=== PATIENT | male | born 1950 | race Caucasian/White ===

== ENCOUNTER → 2020-03-22 11:33 | Outpatient (CLI) | payer MEDICARE, BC, SELFPAY ==
[2017-02-18 06:45] VITALS: BMI 21.9
[2020-03-22 12:43] LABS: Hematocrit 36.7 % (40-54); Hemoglobin 12.3 g/dL (13.0-16.5); Mean Corp Hgb Conc 33.5 g/dL (32-36); Mean Corpuscular Hgb 31.2 pg (27.0-32.0); Mean Corpuscular Volume 93.1 fL (80-94); Platelet Count 289 K/mm3 (150-450); RBC Distribution Width CV 11.9 % (11.6-14.6); RBC Distribution Width SD 41.2 fl (35.1-43.9); Red Blood Count 3.94 M/mm3 (4.6-6.2); White Blood Count 5.3 K/mm3 (4.4-11.0)
[2020-03-22 12:59] LABS: Albumin, Serum 4.6 g/dL (3.2-5.0); BUN 30 mg/dL (7-18); BUN/Creat Ratio 17.5 RATIO (10-20); Calcium,Total 9.6 mg/dL (8.5-10.1); Chloride 105 mmol/L (98-107); Creatinine, Serum 1.71 mg/dL (0.70-1.30); EST Glomerular Filtration Rate 42 mL/min (>60); Est Glom Filt Rate - Afr Amer 51 mL/min (>60); Glucose 92 mg/dL (74-106); Phosphorus 3.7 mg/dL (2.5-4.9); Potassium 5.2 mmol/L (3.5-5.1); Sodium Level 137 mmol/L (136-145)
[2020-03-22 13:11] LABS: PTHIN 41.4 pg/mL (18.4-80.1)
== END ==
PROVIDERS: Visit Provider Internal Medicine Nephrology
DX: N18.32 Chronic kidney disease, stage 3b (principal); R53.83 Other fatigue
CPT/HCPCS: 36415; 80069; 83970; 85027

== ENCOUNTER → 2020-03-27 14:05 | Outpatient (CLI) | payer MEDICARE, BC, SELFPAY ==
[2017-02-18 06:45] VITALS: BMI 21.9
--- NOTE | 2020-03-27 14:08 | US_ITS ---
STUDY: RENAL ULTRASOUND - COMPLETE REASON FOR EXAM: Male, 69 years old. CKD III TECHNIQUE: Ultrasound evaluation of the kidneys was performed with real-time and static hernandez-scale imaging. COMPARISON: None. FINDINGS: RIGHT KIDNEY: Normal location of the right kidney, which is normal in size. The right kidney measures 11.8 x 5.6 x 3.8 cm. There is a normal cortex of the right kidney. The renal cortex measures 1.3 cm. There is no right renal mass or cyst. There are no right renal calculi. There is no right hydronephrosis. DISTAL RIGHT URETER: There is non-visualization of the distal right ureter. There is no demonstrated right ureterovesical junction calculus. There is no demonstrated right ureteral jet. LEFT KIDNEY: Normal location of the left kidney, which is normal in size. The left kidney measures 11.5 x 4.6 x 6.4 cm. There is a normal cortex of the left kidney. The renal cortex measures 1.8 cm. There is no left renal mass or cyst. There are no left renal calculi. There is no left hydronephrosis. DISTAL LEFT URETER: There is non-visualization of the distal left ureter. There is no demonstrated left ureterovesical junction calculus. There is a visualized left ureteral jet. The prostate is enlarged with volume measured at 96 mL. BLADDER: The urinary bladder is nondistended, bladder wall thickening cannot be excluded. There are no demonstrated bladder calculi. US/Kidney and Bladder IMPRESSION: 1. No hydronephrosis. 2. Prostamegaly. Electronically Signed: Vernon Chadwick MD ([place]) at 9:05 EDT , Service support ,
== END ==
PROVIDERS: PCP Family Medicine; Referring Provider Internal Medicine Nephrology; Visit Provider Internal Medicine Nephrology
DX: N18.32 Chronic kidney disease, stage 3b (principal)
CPT/HCPCS: 76770

== ENCOUNTER → 2020-04-24 10:11 | Outpatient (CLI) | payer MEDICARE, BC, SELFPAY ==
[2017-02-18 06:45] VITALS: BMI 21.9
[2020-04-24 13:27] LABS: Albumin, Serum 4.4 g/dL (3.2-5.0); BUN 23 mg/dL (7-18); Calcium,Total 9.2 mg/dL (8.5-10.1); Chloride 106 mmol/L (98-107); Creatinine, Serum 1.64 mg/dL (0.70-1.30); EST Glomerular Filtration Rate 45 mL/min (>60); Est Glom Filt Rate - Afr Amer 54 mL/min (>60); Glucose 88 mg/dL (74-106); Phosphorus 3.2 mg/dL (2.5-4.9); Potassium 4.5 mmol/L (3.5-5.1); Sodium Level 139 mmol/L (136-145)
== END ==
PROVIDERS: PCP Family Medicine; Visit Provider Internal Medicine Nephrology
DX: N18.32 Chronic kidney disease, stage 3b (principal)
CPT/HCPCS: 36415; 80069

== ENCOUNTER → 2020-07-04 13:43 | Outpatient (CLI) | payer MEDICARE, BC, SELFPAY ==
[2020-07-04 14:48] LABS: Absolute Lymphocyte Count 0.47 X10^3/uL (0.83-4.51); Absolute Neutrophil Count 4.1 X10^3/uL (2.0-7.7); Basophil# 0.01 X10^3/uL; Basophil% 0.2 % (0-1); Eosinophil# 0.04 X10^3/uL; Eosinophils% 0.8 % (0-5); Hematocrit 31.8 % (40-54); Hemoglobin 10.4 g/dL (13.0-16.5); Lymphocyte # 0.47 X10^3/ul (4.0); Lymphocyte % 9.8 % (19-41); Mean Corp Hgb Conc 32.7 g/dL (32-36); Mean Corpuscular Hgb 30.6 pg (27.0-32.0); Mean Corpuscular Volume 93.5 fL (80-94); Mean Platelet Vol. 9.5 fl (6.2-12.0); Monocyte% 4.2 % (0-10); NRBC Flagged by Analyzer 0 % (0-5); Neutrophil # 4.06 X10^3/uL (2.7-7.7); Neutrophil % 84.8 % (47-70); POSITIVE DIFFERENTIAL YES; Platelet Count 263 K/mm3 (150-450); RBC Distribution Width SD 41.2 fl (35.1-43.9); White Blood Count 4.8 K/mm3 (4.4-11.0)
[2020-07-04 15:08] LABS: Differential Indicated SCAN CRITERIA MET
[2020-07-04 15:32] LABS: Anion Gap 6 (5-15); BUN 45 mg/dL (7-18); Calcium,Total 9.1 mg/dL (8.5-10.1); Chloride 107 mmol/L (98-107); Creatinine, Serum 2.05 mg/dL (0.70-1.30); EST Glomerular Filtration Rate 34 mL/min (>60); Est Glom Filt Rate - Afr Amer 42 mL/min (>60); Glucose 98 mg/dL (74-106); PSA,Total - Annual Screen 5.49 ng/mL (0.00-4.00); Potassium 5.2 mmol/L (3.5-5.1); Sodium Level 138 mmol/L (136-145); T4 Free Direct 0.98 ng/dL (0.76-1.46); Thyroid Stim Hormone (TSH) 2.79 uIU/mL (0.358-3.74)
[2020-07-04 15:39] LABS: Differential Comment SCANNED
== END ==
PROVIDERS: PCP Family Medicine; Visit Provider Family Medicine
DX: N18.31 Chronic kidney disease, stage 3a (principal); R97.20 Elevated prostate specific antigen [PSA]
CPT/HCPCS: 36415; 80048; 84153; 84439; 84443; 85025; G0103

== ENCOUNTER → 2020-07-06 14:09 | Outpatient (CLI) | payer MEDICARE, BC, SELFPAY ==
[2017-02-18 06:45] VITALS: BMI 21.9
--- NOTE | 2020-07-06 14:12 | US_ITS ---
STUDY: RENAL ULTRASOUND - COMPLETE REASON FOR EXAM: Male, 69 years old. LOW BACK PAIN TECHNIQUE: Ultrasound evaluation of the kidneys was performed with real-time and static hernandez-scale imaging. COMPARISON: 03/27/2020. FINDINGS: RIGHT KIDNEY: Normal location of the right kidney, which is normal in size. The right kidney measures 11.3 x 4.8 x 5.5 cm. There is a normal cortex of the right kidney. The renal cortex measures 1.5 cm. There is no right renal mass or cyst. There are no right renal calculi. There is no right hydronephrosis. DISTAL RIGHT URETER: There is non-visualization of the distal right ureter. There is no demonstrated right ureterovesical junction calculus. There is a visualized right ureteral jet. LEFT KIDNEY: Normal location of the left kidney, which is normal in size. The left kidney measures 11.0 x 5.1 x 5.7 cm. There is a normal cortex of the left kidney. The renal cortex measures 1.6 cm. There is no left renal mass or cyst. There are no left renal calculi. There is no left hydronephrosis. DISTAL LEFT URETER: There is non-visualization of the distal left ureter. There is no demonstrated left ureterovesical junction calculus. There is a visualized left ureteral jet. BLADDER: The distended urinary bladder has a volume of 284 ml. There is trabeculation with thickening of the wall of the urinary bladder. Bladder wall measures 4.3 mm. There is a bladder diverticulum. There is prostate enlargement extending into the base of the bladder. US/Kidney and Bladder IMPRESSION: Similar to prior exam. No acute abnormality of the kidneys. No hydronephrosis. Findings consistent with chronic bladder outlet obstruction from prostate enlargement. Electronically Signed: Gianfranco Wagner MD at 15:57 EST , Service support ,
== END ==
PROVIDERS: PCP Family Medicine; Referring Provider Family Medicine; Visit Provider Family Medicine
DX: M54.5 Low back pain (principal); N40.1 Benign prostatic hyperplasia with lower urinary tract symptoms; N13.8 Other obstructive and reflux uropathy
CPT/HCPCS: 76770

== ENCOUNTER → 2020-07-10 | Outpatient (CLI) | payer MEDICARE, BC, SELFPAY ==
[2017-02-18 06:45] VITALS: BMI 21.9
[2020-07-10 11:00] LABS: Color, Urine Yellow (Yellow); Glucose, Dipstick Normal (Normal); Ketone-Dipstick Negative (Negative); Leukocyte Esterase-Dipstick Negative /ul (Negative); Nitrite-Dipstick Negative (Negative); Occult Blood-Urine 150 /ul (Negative); Protein-Dipstick 30 mg/dl (Negative); Specific Gravity, Urine 1.015 (1.002-1.030); Urine Bilirubin Dipstick Negative (Negative); Urine Clarity Sl. Cloudy (Clear); Urine Urobilinogen Normal (Normal)
[2020-07-10 11:14] LABS: Bacteria RARE /hpf (None Seen); Mucous, Urine RARE /hpf (<or=2+); Red Blood Cells-Urine 0-5 SEEN /hpf (0-5); Squamous Epithelial Cells - UA 0-5 SEEN /hpf (0-5); White Blood Cells 0-5 SEEN /hpf (0-5)
== END | disposition home or self-care (01) ==
LOC: LABSPEC 10:49
PROVIDERS: PCP Family Medicine
DX: R31.29 Other microscopic hematuria (principal)
CPT/HCPCS: 81001

== ENCOUNTER → 2020-08-07 12:49 | Outpatient (CLI) | payer MEDICARE, BC, SELFPAY ==
--- NOTE | 2020-08-07 13:05 | RAD_ITS ---
STUDY: X-RAY - LUMBAR SPINE REASON FOR EXAM: Male, 70 years old. Persistent low back pain TECHNIQUE: 5 view(s) of the lumbar spine were obtained including oblique views. COMPARISON: None FINDINGS: Normal lumbar lordosis. There is no substantial scoliosis. There is a normal alignment of the vertebrae. Mild degree of anterior spondylosis at the L4-L5 level. Normal disc space heights. The soft tissue structures are unremarkable. RAD/L/S Spine Min 4 Views IMPRESSION: Degenerative changes of the spine, as detailed above. Electronically Signed: Damion Rushing MD at 13:59 EST , Service support ,
== END ==
PROVIDERS: PCP Family Medicine; Referring Provider Family Medicine; Visit Provider Family Medicine
DX: M54.5 Low back pain (principal)
CPT/HCPCS: 72110

== ENCOUNTER → 2020-08-22 13:04 | Outpatient (CLI) | payer MEDICARE, BC, SELFPAY ==
[2020-08-20 09:31] VITALS: BMI 20.9
--- NOTE | 2020-08-22 13:55 | MRI_ITS ---
STUDY: MRI LUMBAR SPINE WITHOUT CONTRAST REASON FOR EXAM: Male, 70 years old. lumbar pain,lesion TECHNIQUE: Standardized fat and water weighted pulse sequences were obtained in the sagittal and axial planes. COMPARISON: X-ray 08/07/2020 FINDINGS: T12-L1: Normal endplates. Normal disc height, hydration and morphology. Normal bilateral facet joints. Normal central canal and bilateral lateral recesses. Normal bilateral intervertebral neural foramina. Normal lumbar lordosis. There is no substantial scoliosis. Normal conus medullaris that terminates at the L1/L2. Diffusely heterogeneous mottled the marrow signal throughout the lumbar spine and sacrum suggestive of a metastatic disease or multiple myeloma. Mild loss of height of the L1 vertebral body with marrow edema consistent with an acute pathologic compression fracture. No retropulsion into the spinal canal. L1-2: Normal endplates. Normal disc height, hydration and morphology. Normal bilateral facet joints. Normal central canal and bilateral lateral recesses. Normal bilateral intervertebral neural foramina. L2-3: Small central disc protrusion produces mild spinal stenosis and no neural foraminal stenosis. L3-4: Mild bilateral facet hypertrophy and ligament flavum hypertrophy. Mild broad disc protrusion produces mild spinal stenosis and mild bilateral neural foraminal stenosis. L4-5: Mild broad disc protrusion with a central annular tear produces mild spinal stenosis but no neural foraminal stenosis. L5-S1: Normal endplates. Normal disc height, hydration and morphology. Normal bilateral facet joints. Normal central canal and bilateral lateral recesses. Normal bilateral intervertebral neural foramina. Normal visualized sacral ala. Normal visualized paraspinous soft tissue structures. MRI/Spine Lumbar (Routine) IMPRESSION: 1. Diffusely heterogeneous of the marrow signal suggestive of metastatic disease or multiple myeloma. Acute mild pathologic compression fracture of L1 without retropulsion into the spinal canal. 2. Degenerative disc disease as described above. Electronically Signed: Ed Delgado MD at 16:20 EST Tel , Service support ,
--- NOTE | 2020-08-22 14:32 | MRI_ITS ---
STUDY: MRI THORACIC SPINE WITHOUT CONTRAST REASON FOR EXAM: Male, 70 years old. pain TECHNIQUE: Standardized fat and water weighted pulse sequences were obtained in the sagittal and axial planes. COMPARISON: None. FINDINGS: Normal kyphosis of the thoracic spine. There is no substantial scoliosis. Heterogeneous mottled marrow signal throughout the thoracic spine suggestive of an infiltrative disorder such as metastatic disease or multiple myeloma. T1-2, T2-3, T3-4, T4-5, T5-6, T6-7, T7-8, T8-9, T9-10, T10-11, T11-12: Normal endplates. Normal disc hydration, heights and morphology of the corresponding intervertebral discs. Normal central canal and intervertebral neural foramina at the corresponding levels. Normal visualized thoracic cord. Normal conus medullaris that terminates at the L2.. The soft tissue structures are unremarkable. MRI/Spine Thoracic (Routine) IMPRESSION: Suspect marrow proliferative disorder such as the metastatic disease or multiple myeloma. Clinical correlation is recommended. Electronically Signed: Ed Delgado MD at 16:13 EST Tel , Service support ,
== END ==
PROVIDERS: PCP Family Medicine; Referring Provider Orthopaedic Surgery; Visit Provider Orthopaedic Surgery
DX: G12.29 Other motor neuron disease (principal); M51.26 Other intervertebral disc displacement, lumbar region
CPT/HCPCS: 72146; 72148

== ENCOUNTER → 2020-08-24 13:49 | Outpatient (CLI) | payer MEDICARE, BC, SELFPAY ==
[2020-08-20 09:31] VITALS: BMI 20.9
[2020-08-24 17:52] LABS: Absolute Lymphocyte Count 0.45 X10^3/uL (0.83-4.51); Absolute Neutrophil Count 3.3 X10^3/uL (2.0-7.7); Basophil# 0.02 X10^3/uL; Basophil% 0.5 % (0-1); Eosinophil# 0.06 X10^3/uL; Eosinophils% 1.5 % (0-5); Hematocrit 30.8 % (40-54); Hemoglobin 10.3 g/dL (13.0-16.5); Lymphocyte # 0.45 X10^3/ul (4.0); Lymphocyte % 11.1 % (19-41); Mean Corp Hgb Conc 33.4 g/dL (32-36); Mean Corpuscular Hgb 31.7 pg (27.0-32.0); Mean Corpuscular Volume 94.8 fL (80-94); Mean Platelet Vol. 9.3 fl (6.2-12.0); Monocyte# 0.19 X10^3/uL; Monocyte% 4.7 % (0-10); NRBC Flagged by Analyzer 0 % (0-5); Neutrophil # 3.32 X10^3/uL (2.7-7.7); POSITIVE DIFFERENTIAL YES; Platelet Count 292 K/mm3 (150-450); RBC Distribution Width CV 12.4 % (11.6-14.6); RBC Distribution Width SD 43.4 fl (35.1-43.9); Red Blood Count 3.25 M/mm3 (4.6-6.2); White Blood Count 4.1 K/mm3 (4.4-11.0)
[2020-08-24 17:59] LABS: Differential Indicated SCAN CRITERIA MET
[2020-08-24 18:09] LABS: ALB/GLOB Ratio 1.5 RATIO (0.9-2.4); AST(SGOT) 10 U/L (15-37); Alanine Aminotransfer ALT/SGPT 30 U/L (16-61); Albumin, Serum 4.2 g/dL (3.2-5.0); Alkaline Phosphatase 182 U/L (45-117); Anion Gap 5 (5-15); BUN 53 mg/dL (7-18); BUN/Creat Ratio 17.7 RATIO (10-20); Calcium,Total 9.3 mg/dL (8.5-10.1); Chloride 105 mmol/L (98-107); Creatinine, Serum 2.99 mg/dL (0.70-1.30); EST Glomerular Filtration Rate 22 mL/min (>60); Est Glom Filt Rate - Afr Amer 27 mL/min (>60); Globulin 2.8 g/dL (2.2-4.2); Glucose 110 mg/dL (74-106); Potassium 4.8 mmol/L (3.5-5.1); Sodium Level 136 mmol/L (136-145)
[2020-08-24 18:27] LABS: Differential Comment SCANNED
[2020-08-27 20:11] LABS: Beta-2-Microglobulin, S 8.3 mg/L (0.6-2.4)
[2020-08-28 10:08] LABS: Pathologist Review Reviewed
[2020-08-28 20:07] LABS: Free Kappa Light Chains 1169.4 mg/L (3.3-19.4); Free Lambda Light Chains 5.9 mg/L (5.7-26.3); PROEL- A/G Ratio 1.7 (0.7-1.7); PROEL- Albumin 4.1 g/dL (2.9-4.4); PROEL- Alpha-1 Globulin 0.3 g/dL (0.0-0.4); PROEL- Alpha-2 Globulin 0.9 g/dL (0.4-1.0); PROEL- Beta Globulin 0.9 g/dL (0.7-1.3); PROEL- Gamma Globulin 0.3 g/dL (0.4-1.8); PROEL- Globulin, Total 2.4 g/dL (2.2-3.9); PROEL- TOTAL PROTEIN 6.5 g/dL (6.0-8.5); PROELU- Albumin, Urine 59.5 % (.); PROELU- Alpha-1-Globulin,Ur 3.2 % (.); PROELU- Alpha-2-Globulin,Ur 10.3 % (.); PROELU- Beta Globulin, Ur 13.5 % (.); PROELU- Gamma Globulin, Ur 13.5 % (.); Total Protein, Ur 36.9 mg/dL (Not Estab.)
== END ==
PROVIDERS: PCP Family Medicine; Visit Provider Family Medicine
DX: R79.89 Other specified abnormal findings of blood chemistry (principal); R80.0 Isolated proteinuria; R93.7 Abnormal findings on diagnostic imaging of other parts of musculoskeletal system; D64.9 Anemia, unspecified
CPT/HCPCS: 36415; 80053; 82232; 83883; 84165; 84166; 85025

== ENCOUNTER → 2020-08-27 07:20 | Outpatient (CLI) | payer MEDICARE, BC, SELFPAY ==
[2020-08-20 09:31] VITALS: BMI 20.9
--- NOTE | 2020-08-27 07:33 | MRI_ITS ---
STUDY: MRI CERVICAL SPINE WITHOUT CONTRAST REASON FOR EXAM: Male, 70 years old. PAIN -- no neck pain, babinski reflex TECHNIQUE: Standardized fat and water weighted pulse sequences were obtained in the sagittal and axial planes. COMPARISON: No comparison available. FINDINGS: Diffuse heterogeneous marrow signal with multiple regions of abnormal STIR signal (sagittal image 8 series 4). No acute fracture line. No acute dislocation. No abnormal cord signal. Symmetric vascular flow voids. Mild paraspinal muscle atrophy. No acute soft tissue process. Mild cervical straightening. No significant scoliosis. Diffuse mild/moderate facet joint arthrosis. No spondylolisthesis. Intact foramen magnum and brainstem-cervical cord junction. Intact craniovertebral junction. Intact anterior atlantoaxial articulation. Intact odontoid process. C2-3: Normal endplates. Shallow disc bulge. Normal central canal and intervertebral neural foramina. C3-4: Mild endplate spondylosis. Shallow disc bulge. Normal central canal. Moderate bilateral neural foraminal narrowing. C4-5: Mild endplate spondylosis. Shallow disc bulge. Minimal central canal narrowing. Moderate bilateral neural foramina narrowing. C5-6: Mild endplate spondylosis. Shallow disc bulge. Minimal canal narrowing. Severe right neural foramina narrowing. Normal left neural foramina. C6-7: Mild endplate spondylosis. Left paracentral disc protrusion. Minimal canal narrowing. Severe left and moderate right neural foraminal narrowing. C7-T1: Normal endplates. Disc desiccation. Normal central canal and intervertebral neural foramina. MRI/Spine Cervical (Routine) IMPRESSION: No abnormal cord signal Multilevel intervertebral disc disease with mild central canal narrowing at C4-5 through C6-7 Multilevel moderate/severe neural foraminal narrowing at C3-4 through C6-7 Multilevel mild/moderate osteoarthritis Heterogeneous marrow signal with there are abnormalities (diffuse metastatic disease/multiple myeloma versus less likely severe red marrow reconversion/anemia; correlate medical history) Electronically Signed: Dexter Chung DO at 10:18 EST Tel , Service support ,
--- NOTE | 2020-08-27 07:33 | MRI_ITS ---
STUDY: MRI BRAIN WITHOUT CONTRAST REASON FOR EXAM: Male, 70 years old. LESION TECHNIQUE: Standardized multiplanar fat and water weighted pulse sequences were obtained. COMPARISON: None. FINDINGS: Normal size of the ventricles and extra-axial spaces for the patient''s age. Normal white matter tracts of the supratentorial brain. There is no evidence for recent intracranial ischemia or other cause of cytotoxic edema on diffusion weighted imaging (DWI). Normal T2* images of the brain without demonstrated susceptibility artifact. There is no demonstrated hemosiderin stain. Normal bilateral basal ganglia. Normal thalami. There is no extra-axial fluid accumulation. Normal flow voids within the major intracranial circulation suggesting patency by spin echo criteria. Normal sella turcica, pituitary gland, infundibular stalk, optic chiasm and hypothalamus. Normal tectal plate and pineal gland. Normal midbrain, judy and medulla. Normal cerebellum. Normal basal cisterns. Normal bilateral temporal bones. Normal bilateral internal auditory canals. No demonstrated orbital abnormality, within the constraints of a routine brain study. Normal visualized paranasal sinuses. Normal calvarium and skull base. Normal visualized soft tissue structures. Normal visualized upper cervical spine. MRI/Brain without Contrast IMPRESSION: Normal unenhanced MRI of the brain. Electronically Signed: Ed Delgado MD at 9:53 EST Tel , Service support ,
== END ==
PROVIDERS: PCP Family Medicine; Referring Provider Orthopaedic Surgery; Visit Provider Orthopaedic Surgery
DX: G93.9 Disorder of brain, unspecified (principal); M48.02 Spinal stenosis, cervical region
CPT/HCPCS: 70551; 72141

== ENCOUNTER 2020-08-28 10:30 | Outpatient (RCR) | payer MEDICARE, BC, SELFPAY ==
--- NOTE | 2020-08-14 14:04 | HP.PTEVAL_ITS ---
Patient's Visit Information JENNIFER OCAMPO is a 70 year old M referred to Physical Therapy by Dr. Bradley Chiang DO with a diagnosis of Low back pain; Lumbago. Date of Evaluation: 08/14/20 Physical Therapist: Cristino Nguyen, PT, Cert MDT, OCS - Visit Plan Frequency: 2x /Week Duration: 4-6 Weeks Plan: 2xs/week for 4-6 weeks. PT Interventions: Core stabilization, postural training, body mechanics, LE strengthening, Lumbar AROM, flexibility. Could benifit from MRI - Subjective Patient is a 70 year old male presenting to the clinic with LBP. March 2020 diagnosed with kidney disease. Back pain started late April 2020 (insidious onset) and progressively got worse. X-ray showed mild degenerative changes. Has an appointment on 08/21/[address] Bass to look at his back. Patient is unsure if the back pain is musculoskeletal or related to kidney disorder. 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 Sitting and standing help to decrease pain. Low back pain that is worse on the L compared to the right. Describes pain as aching. Reports he doesn't sleep well; sleeps on side. Denies any radicular symptoms, numbness and tingling. Reports stairs are not challenging. Tylenol and heat help to decrease the pain. Coughing/sneezing +.Bowel/bladder _. Vocation: Retired - Pain Bilateral Back Pain Intensity (Out of 10): 5 Pain Intensity Range: 10 - Objective Lumbar AROM: Flexion 25% (+Keerthi's Sign), ext 25%, sidebending 50%, rotation 50%. LE MMT: L Hip flexion 4+/5, quad 5/5, hams 5/5, DF 5/5, PF 5/5. R hip flexion 4+/5, quad 5/5, hams 5/5, DF 5/5, PF 5/5. Sensation: Intact to light touch in B LE. Posture: Decreased lumbar lordosis. Palpation: No TTP of lumbar paraspinals - Special Tests L/S Slump test left side: Negative L/S Slump test right side: Negative L/S Left Straight Leg Raise: Positive L/S Right Straight Leg Raise: Negative Lumbar Standing: Flexion - Mechanical Response: No effect Lumbar Standing: Flexion - Symptoms During Testing: Increases Lumbar Standing: Flexion - Symptoms After Testing: Worse Lumbar Standing: Extension - Mechanical Response: No effect Lumbar Standing: Extension - Symptoms During Testing: Decreases Lumbar Standing: Extension - Symptoms After Testing: Better Lumbar Standing: Right Side Glides - Mechanical Response: No effect Lumbar Standing: Right Side [place] - Symptoms During Testing: No effect Lumbar Standing: Right Side [place] - Symptoms After Testing: No effect Lumbar Standing: Left Side [place] - Mechanical Response: No effect Lumbar Standing: Left Side [place] - Symptoms During Testing: No effect Lumbar Standing: Left Side [place] - Symptoms After Testing: No effect Comments:: no painfull Comments:: check session - Goals Goal 1:: Patient will demonstrate independence with HEP. Goal Time Frame: 4-6 Weeks Goal 2:: Patient will demonstrate 5/5 LE MMT for improved functional strength. Goal Time Frame: 4-6 Weeks Goal 3:: Patient will report no more than 2/10 pain will getting up out of bed for improved functional mobility. Goal Time Frame: 4-6 Weeks Goal 4:: Patient will improve Oswestry (back) by 5 or > points for improved QOL. Goal Time Frame: 4-6 Weeks Goal 5:: Patient will demonstrate the ability to perform lumbar flexion with >50% limitation and negative [place]'s sign for improved functional mobility. Goal Time Frame: 4-6 Weeks - Rehabilitation Potential Physical Therapy Diagnosis: Patient is a 70 year old male presenting to the clinic with LBP, limited lumbar AROM, and pain with transfers in bed. Patient's pain is consistent with musculoskeletal pathology with pain during test movements possible dsic related. Rehabilitation Potential: Good - Anticipated Interventions Patient/Client Instruction: Educate patient on: Condition, Plan of Care, Benefits of Fitness Program For the Purpose of:: To decrease pain, To decrease swelling/inflammation, To increase ROM, To improve muscle performance and motor function, To improve ability to perform ADL's, To increase tolerance to activity/condition/position, To improve performance and independence with ADL's, To improve ability of physical actions for home/community/work/leisure, To increase flexibility/ROM, To assume or resume ADL's, To improve health and function, To improve self management, To improve ability to perform tasks related to life management, To improve tolerance to ADL's Therapeutic Exercise to Include: Strength training, Body mechanics, Postural training, Flexibilty training, Active ROM For the Purpose of:: To decrease pain, To decrease swelling/inflammation, To increase ROM, To improve muscle performance and motor function, To improve ab ility to perform ADL's, To increase tolerance to activity/condition/position, To improve performance and independence with ADL's, To improve ability of physical actions for home/community/work/leisure, To increase flexibility/ROM, To assume or resume ADL's, To improve health and function, To improve self management, To improve ability to perform tasks related to life management, To improve toleran ce to ADL's IF ES: Yes Other electric stimulation: Yes Cryotherapy (ice pack, ice massage): Yes Thermo therapy (hot pack): Yes For the Purpose of:: To decrease pain, To decrease swelling/inflammation, To increase ROM, To improve muscle performance and motor function, To improve ability to perform ADL's, To increase tolerance to activity/condition/position, To improve performance and independence with ADL's, To improve ability of physical actions for home/community/work/leisure, To increase flexibility/ROM, To assume or resume ADL's, To improve health and function, To improve self management, To improve ability to perform tasks related to life management, To improve tolerance to ADL's Thank you for the opportunity to evaluate your patient. For Medicare and Medicare HMO plans, please review the plan of care and approve it. It will need to be FAXED BACK to us at [phone] for Medicare purposes. For Medicare only, by signing this I certify the plan of care. Please let me know if there are questions or concerns regarding this plan of care. Physician Signature: Date:
--- NOTE | 2021-02-04 17:49 | HP.PT.NRP ---
JENNIFER Lucas AMINAHJIAIDAN was seen in my office for initial evaluation on 08/14/20. The following Plan of Care was established for this patient: Initial Frequency: 2x /Week Initial Duration: 4-6 Weeks Patient/Client Instruction: Educate patient on: Condition, Plan of Care, Benefits of Fitness Program For the Purpose of:: To decrease pain, To decrease swelling/inflammation, To increase ROM, To improve muscle performance and motor function, To improve ability to perform ADL's, To increase tolerance to activity/condition/position, To improve performance and independence with ADL's, To improve ability of physical actions for home/community/work/leisure, To increase flexibility/ROM, To assume or resume ADL's, To improve health and function, To improve self management, To improve ability to perform tasks related to life management, To improve tolerance to ADL's Therapeutic Exercise to Include: Strength training, Body mechanics, Postural training, Flexibilty training, Active ROM For the Purpose of:: To decrease pain, To decrease swelling/inflammation, To increase ROM, To improve muscle performance and motor function, To improve ability to perform ADL's, To increase tolerance to activity/condition/position, To improve performance and independence with ADL's, To improve ability of physical actions for home/community/work/leisure, To increase flexibility/ROM, To assume or resume ADL's, To improve health and function, To improve self management, To improve ability to perform tasks related to life management, To improve tolerance to ADL's IF ES: Yes Other electric stimulation: Yes Cryotherapy (ice pack, ice massage): Yes Thermo therapy (hot pack): Yes For the Purpose of:: To decrease pain, To decrease swelling/inflammation, To increase ROM, To improve muscle performance and motor function, To improve ability to perform ADL's, To increase tolerance to activity/condition/position, To improve performance and independence with ADL's, To improve ability of physical actions for home/community/work/leisure, To increase flexibility/ROM, To assume or resume ADL's, To improve health and function, To improve self management, To improve ability to perform tasks related to life management, To improve tolerance to ADL's This patient was last seen in our office . Pertinent comments regarding their Physical therapy will appear below: Patient seen for PT for back pain had multiple test found to have multiple myeloma . NA for PT At this point I will be discontinuing this patient from physical therapy. I would be happy to see this patient again in the future if found appropriate by the physician. Thank you! Cristino Nguyen, PT, Cert MDT, OCS Balance/Gait/Functional tests - Balance/Special Test Scores Oswestry Low Back Score: 17
== END 2020-08-28 19:00 | disposition home or self-care (01) ==
LOC: PT 10:30
PROVIDERS: PCP Family Medicine; Referring Provider Family Medicine; Visit Provider Family Medicine
DX: M54.5 Low back pain (principal)
CPT/HCPCS: 97014; 97110; 97161; G0283

== ENCOUNTER → 2020-09-03 12:43 | Outpatient (CLI) | payer MEDICARE, BC, SELFPAY ==
[2020-08-31 09:40] VITALS: BMI 19.8
--- NOTE | 2020-09-03 13:06 | RAD_ITS ---
STUDY: X-RAY BONE SURVEY COMPLETE REASON FOR EXAM: Male, 70 years old. Multiple myeloma. TECHNIQUE: One view of the pelvis was obtained. 2 views of the cervical spine were obtained. 2 views of the thoracic spine were obtained. 2 views of the lumbar spine were obtained. 2 views of the femur. 2 views of the humerus. : 3 views of the skull were obtained. COMPARISON: None. FINDINGS: CHEST: Mild hyperexpansion with diffuse interstitial pattern. There is no demonstrated pleural abnormality. Cardiomegaly. Normal mediastinum and rosy. Normal visualized pulmonary arteries. Normal visualized aortic arch and descending thoracic aorta. Normal visualized thoracic spine. Normal visualized ribs, clavicles, and shoulders. There is no demonstrated abnormality of the visualized soft tissue structures of the upper abdomen. PELVIS: There is a non-specific bowel gas pattern. Normal visualized soft tissue structures. Normal bilateral iliac wings, sacroiliac joints and visualized sacrum. Normal visualized bilateral superior and inferior pubic rami. Normal pubic symphysis. Normal ischial tuberosities. Normal visualized right femoral head. Normal right acetabulum. Normal right hip joint. Normal visualized left femoral head. Normal left acetabulum. Normal left hip joint. CERVICAL SPINE: Normal anterior atlantoaxial articulation. Normal odontoid process. Normal cervical lordosis. Normal vertebral bodies and endplates. Normal disc space heights. Normal visualized intervertebral neuroforamina. The soft tissue structures are unremarkable. THORACIC SPINE: Generalized osteopenia. Normal kyphosis of the thoracic spine. There is no substantial scoliosis. Normal thoracic vertebrae and endplates. Diffuse intervertebral disc space narrowing with small osteophytes. The soft tissue structures are unremarkable. LUMBAR SPINE: Generalized osteopenia. Normal lumbar lordosis. There is no substantial scoliosis. There is a normal alignment of the vertebrae. Anterior wedge compression deformity of L1, age undetermined. Diffuse mild intervertebral disc space narrowing with small osteophytes. The soft tissue structures are unremarkable. RIGHT FEMUR: Normal visualized femur. Normal visualized soft tissue structure. Chondrocalcinosis of the knee. LEFT FEMUR: Lytic lesion with scalloping of the cortex in the left femur just below the greater trochanter. Normal visualized soft tissue structure. RIGHT HUMERUS :Normal visualized humerus. There is no demonstrated fracture or osseous destructive process. There is no demonstrated soft tissue abnormality. LEFT HUMERUS: Normal visualized humerus. There is no demonstrated fracture or osseous destructive process. There is no demonstrated soft tissue abnormality. LEFT AND RIGHT FOREARMS: Normal radius and ulna bilaterally. No soft tissue abnormality. LEFT AND RIGHT LOWER EXTREMITY: Normal tibia and fibula bilaterally. No soft tissue abnormality. SKULL: There is no demonstrated soft tissue swelling. Normal osseous calvarium. Normal visualized facial bones. Normal visualized paranasal sinuses. RAD/Bone Survey Comp(Axial&Append) IMPRESSION: Generalized osteopenia. Lytic lesion in the left proximal femur as described. Anterior wedge compression deformity of L1, age undetermined. Chondrocalcinosis of the knee. Diffuse mild cervical, thoracic and lumbar spondylosis. Electronically Signed: Moo Nolasco MD at 12:44 EDT , Service support ,
== END ==
PROVIDERS: PCP Family Medicine; Referring Provider Internal Medicine Hematology & Oncology; Visit Provider Internal Medicine Hematology & Oncology
DX: D47.2 Monoclonal gammopathy (principal); M89.9 Disorder of bone, unspecified; D64.9 Anemia, unspecified
CPT/HCPCS: 77075; 81050; 84166; 86335

== ENCOUNTER → 2020-09-06 07:45 | Outpatient (CLI) | payer MEDICARE, BC, SELFPAY ==
[2020-08-31 09:40] VITALS: BMI 19.8
[2020-09-06] VITALS (9 sets, daily range): BP systolic 128–154; BP diastolic 77–106; PULSE 69–97; RESP 10–23; TEMP 36.4; O2SAT 99–100; BMI 19.6
--- NOTE | 2020-09-06 | IMM_PTH ---
PATIENT: JENNIFER OCAMPO LOC: [place] U#:[id number] AGE/SX: 74/M ROOM: RE09/06/[address]: Dr. Rohini Tabor MD : 1950 BED: DIS: SPEC #: [id number] RECD: 09/07/20 10:36 STATUS: ELA REQ #: [id number] EBONY: 09/06/20 00:[address]: Rohini Tabor DEPT: IMMUNOHISTOCHEMISTRY RECD BY: Juliann Corrales ENTERED: 09/07/20 10:39 SP TYPE: IMMUNO OTHR DR: Dr. Bradley Chiang DO Tissues: B - Bone marrow of iliac crest Procedures: BCL-2 (add) BCL-6 (add) CD10 (add) CD138 (add) CD15 (add) CD20 (add) CD23 (add) CD3 (add) CD30 (add) CD43 (add) CD45 (add) CD5 (add) CD79A (add) CYCLIN (add) KAPPA (add) KI-67 (add) LAMBDA (add) MUM1 (add) C-MYC (add) Pankeratin (initial) S-100 (add) PHYSICIAN & [place] [id number] SPECIMEN INFORMATION: Tissue Source: B - Bone marrow biopsy, clot Clinical Info: MGUS, bone lesions, CRF, anemia, multiple myeloma Specimen Number: [id number] CPT code: 55257, 07724 x20 METHODOLOGY: Deparaffinized sections of prefer/formalin-fixed tissue or PAP/DQ stained slides are incubated with monoclonal/polyclonal antibodies/oligonucleotide probes. Localization is made via biotin free immunoperoxidase method. Appropriate controls are performed and reacted as expected. Results on target cell population are indicated in the following table: RESULTS: ANTIBODY / CLONE RESULT AE1-3 (AE1/AE3/PCK26) negative CD3 (PS1) negative CD5 (SP10) negative CD10 (56C6) negative CD15 (MMA) negative CD20 (L26) positive CD23 (1B12) negative CD30 (Ubaldo-H2) negative CD43 (L60) positive CD45 (RP2/18) negative CD79a (11E3) positive CD138 (B-A38) positive BCL-2 (bcl-2/100/D5) positive BCL-6 (LU917W/A8) negative Cyclin D1/BCL-1 (SP4) positive MUM1 (MRQ-43) positive C-MYC (Y69) negative Yarnell (polyclonal) positive Lambda (polyclonal) negative S-100 (4C4.9) negative Ki-67 (30-9) positive, low These tests were developed and their performance characteristics determined by [facility]. They may not have been cleared or approved by the U.S. Food and Drug Administration. The FDA has determined that such clearance or approval is not necessary. The above immunohistochemical/dualISH markers are ordered and reviewed by the Pathologist. INTERPRETATION: B. Bone marrow biopsy, clot: Consistent with plasma cell neoplasm, kappa restricted. AM:katina 09/10/2020 Case has been reviewed in consultation with Dr. Garland who concurs with the above diagnosis. IDC:SJ
--- NOTE | 2020-09-06 07:57 | CT_ITS ---
PROCEDURE: CT GUIDED BONE marrow biopsy of the left iliac bone. DATE: 09/06/2020 INDICATION: Male, 70 years old. [facility] [place] PHYSICIAN: Damion Rushing M.D. RADIATION DOSAGE (If Supplied By Facility): CTDIvol = ( 26 ) mGy, DLP = ( 454.03 ) mGycm. Individualized dose optimization techniques were utilized. PROCEDURE: The risks, benefits, and alternatives to the procedure were explained to the patient. The specific risk of hemorrhage requiring further treatment or intervention was detailed and accepted. Follow-up instructions were discussed with the patient as well. Written informed consent was obtained. The patient was brought into the CT suite and placed in the prone position. . An appropriate entry site was identified. The overlying skin was prepped and draped in the usual sterile fashion. 1% lidocaine was administered subcutaneously for local anesthesia. Conscious sedation was performed. The patient received 2 mg of VERSED and 50 mcg of FENTANYL intravenously. Conscious sedation was started at 9:00 AM and terminated at 922. The patient was monitored independently by the department nurse. Under CT guidance, a bone marrow biopsy and bone marrow aspirate from the posterior aspect of the left iliac bone were performed The specimens were then placed in the appropriate fluid and transported to the laboratory for analysis. Hemostasis was obtained. The patient tolerated the procedure well without immediate complications. CT/Biopsy/Inj or Needle Placement IMPRESSION: Successful CT guided bone marrow biopsy and aspirate of the posterior aspect of the left iliac bone, as described above. Conscious sedation protocol was followed. Electronically Signed: Damion Rushing MD at 9:50 EDT , Service support ,
[2020-09-06 07:58] LABS: Absolute Lymphocyte Count 0.56 X10^3/uL (0.83-4.51); Absolute Neutrophil Count 2.4 X10^3/uL (2.0-7.7); Basophil# 0.01 X10^3/uL; Basophil% 0.3 % (0-1); Eosinophil# 0.07 X10^3/uL; Eosinophils% 2.2 % (0-5); Hematocrit 31.5 % (40-54); Hemoglobin 10.3 g/dL (13.0-16.5); Lymphocyte # 0.56 X10^3/ul (4.0); Lymphocyte % 17.2 % (19-41); Mean Corp Hgb Conc 32.7 g/dL (32-36); Mean Corpuscular Hgb 31.2 pg (27.0-32.0); Mean Corpuscular Volume 95.5 fL (80-94); Mean Platelet Vol. 8.4 fl (6.2-12.0); Monocyte# 0.18 X10^3/uL; Monocyte% 5.5 % (0-10); NRBC Flagged by Analyzer 0 % (0-5); Neutrophil # 2.43 X10^3/uL (2.7-7.7); Neutrophil % 74.8 % (47-70); POSITIVE DIFFERENTIAL YES; Platelet Count 219 K/mm3 (150-450); RBC Distribution Width CV 12.5 % (11.6-14.6); RBC Distribution Width SD 43.7 fl (35.1-43.9); White Blood Count 3.3 K/mm3 (4.4-11.0)
[2020-09-06 07:59] LABS: Differential Indicated SCAN CRITERIA MET
[2020-09-06 08:09] LABS: Partial Thromboplast Time 26.7 Seconds (24.1-36.2); Prothrombin Time (Protime)PT. 12.6 SECONDS (11.7-14.9)
[2020-09-06 08:14] LABS: ALB/GLOB Ratio 1.5 RATIO (0.9-2.4); AST(SGOT) 29 U/L (15-37); Alanine Aminotransfer ALT/SGPT 86 U/L (16-61); Albumin, Serum 4.2 g/dL (3.2-5.0); Alkaline Phosphatase 196 U/L (45-117); Anion Gap 6 (5-15); BUN 53 mg/dL (7-18); BUN/Creat Ratio 18.7 RATIO (10-20); Calcium,Total 9.6 mg/dL (8.5-10.1); Chloride 108 mmol/L (98-107); Creatinine, Serum 2.84 mg/dL (0.70-1.30); EST Glomerular Filtration Rate 24 mL/min (>60); Est Glom Filt Rate - Afr Amer 29 mL/min (>60); Globulin 2.8 g/dL (2.2-4.2); Glucose 100 mg/dL (74-106); Potassium 5.1 mmol/L (3.5-5.1); Sodium Level 138 mmol/L (136-145)
[2020-09-06 08:37] LABS: Pathologist Review May foll; Platelet Estimate A (ADEQ); Red Cell Morphology NORM C+C NORMAL (NORM C&C)
[2020-09-06] MEDS: fentaNYL 100 MCG/2 ML Ampul IV ×2 (08:59→09:24)
[2020-09-06] MEDS: Midazolam 2 MG/2 ML Syringe IV ×2 (08:59→09:24)
--- NOTE | 2020-09-06 09:00 | BMB_PTH ---
PATIENT: JENNIFER OCAMPO LOC: [place] U#:[id number] AGE/SX: 74/M ROOM: RE09/06/[address]: Dr. Rohini Tabor MD : 1950 BED: DIS: SPEC #: [id number] RECD: 09/06/20 09:45 STATUS: ELA REQ #: [id number] EBONY: 09/06/20 09:[address]: Rohini Tabor DEPT: BONE MARROW RECD BY: Anny Farr ENTERED: 09/06/20 09:46 SP TYPE: BMB ISABEL DR: Dr. Bradley Chiang DO Tissues: A - Bone marrow, NOS B - Bone marrow, NOS C - Bone marrow, NOS Procedures: Bone Marrow Aspiration Bone Marrow Core Biopsy Iron Stain Bone Marrow HEADER OPERATION: Bone marrow biopsy and aspiration PRE-OP DIAGNOSIS: MGUS, bone lesions, CRF, anemia, multiple myeloma TISSUE SUBMITTED: A - Core, B - Clot, C - Smears, and send outs (flow, cytogenetics and FISH) BONE MARROW DIAGNOSIS Bone marrow biopsy, clot and aspiration: Plasma cell neoplasm, kappa restricted. See comment. AM:katina 09/10/2020 COMMENT Immunohistochemistry ([id number]) supports the above diagnosis. Flow cytometry analysis of aspirate material does not reveal phenotypic evidence of abnormal myeloid maturation, increased blasts or lymphoproliferative disorder. The complete flow report is viewable in EMR. Case has been reviewed in consultation with Dr. Garland who concurs with the above diagnosis. IDC:SJ BONE MARROW STUDY Slides are reviewed. CBC DATE: 09/06/20 WBC 3.3; RBC 3.3; HGB 10.3; HCT 31.5; MCV 95.5; RDW 12.5; PLTS 219,000 SEGS 74.8%; LYMPHS 17.2%; MONOS 5.5%; EOS 2.2%; BASOS 0.3% PERIPHERAL SMEAR: Submitted. RBC: Macrocytic anemia. WBC: Occasional reactive lymphocytes. PLTS: Normomorphic BONE MARROW ASPIRATE DIFFERENTIAL: 200 cell count. Blasts % (normal 0-2): 1 Promyelocytes % (normal 1-5): 3 Myelocytes and metamyelocytes % (normal 17-41): 25 Bands and Segs % (normal 15-32): 21 Eos % (normal 1-6): 1 Basos % (normal 0-1): 0 Monocytes % (normal 0-4): 2 Erythroid Precursors % (normal 17-35): 23 Lymphocytes % (normal 7-13): 10 Plasma Cells % (normal 0-2): 14 ASPIRATE FINDINGS: Site: Left hip Aspicular Hypocellular M/E ratio: 2.2 (Normal 1.5 - 4.0) Megakaryocytes: Rare, normomorphic Erythropoiesis: Normoblastic Granulopoiesis: Progressive Other findings: Plasma cell neoplasm CORE BIOPSY FINDINGS: Site: Left hip Adequacy: Not applicable Cellularity %: Not applicable M/E ratio: Not applicable Comment: No bone, bone marrow present. Only blood identified. ASPIRATE CLOT FINDINGS: Site: Left hip Marrow Particles: Many Cellularity %: >90% M/E ratio: Within normal limits Megakaryocytes: Decreased Granuloma(s): 0 Lymphoid aggregate(s): 0 Comment: Plasma cell neoplasm. SPECIAL STAINS (with matched controls): Iron: Increased (4+) in areas of plasma cell proliferation. Reticulin: Within normal limits PAS: Highlights myeloid elements and megakaryocytes. BONE MARROW GROSS A - Received is a container labeled with the patient's name and designated left hip. The specimen consists of reddish-duvall fluid measuring approximately 5 cc in quantity. The specimen is submitted for cell block preparation. B - Received labeled with the patient's name and designated left hip is a specimen that consists of approximately 7 cc of reddish-duvall fluid that on filtration yields multiple irregular fragments of red-duvall soft tissue measuring in aggregate 2 x 1 x <0.1 cm. The specimen is totally submitted in one cassette. C - Also received are 10 unstained and 1 peripheral stained slides. The unstained slides are submitted for appropriate staining. Also received are two green top tubes which are sent to our reference lab for flow, cytogenetics and FISH. / AM:katina 09/06/20 TC:0 CPT: 20370, 09608, 95358 x2, 89719 x3 ADDENDUM ADDENDUM ADDENDUM ADDENDUM ADDENDUM ADDENDUM ADDENDUM ADDENDUM ADDENDUM ADDENDUM ADDENDUM ADDENDUM ADDENDUM ADDENDUM ADDENDUM ADDENDUM ADDENDUM ADDENDUM ADDENDUM ADDENDUM ADDENDUM 09/13/2020 10:08 ADDENDUM 09/13/2020 10:08 ADDENDUM 09/13/2020 10:08 ADDENDUM 09/13/2020 10:08 ADDENDUM 09/13/2020 10:08 ADDENDUM 09/14/2020 10:51 ADDENDUM 01/03/2021 09:31 FLUORESCENCE IN-SITU HYBRIDIZATION (FISH) FROM [facility] MYELOMA PROGNOSIS INTERPRETATION: 1. No evidence of IGH-MAF [translocation t(14;16)] gene rearrangement 2. RB1 monosomy (13q14 deletion) is present. Comment: Deletion of 13q14 (RB1 locus) can be seen in 15-40% of newly diagnosed cases of plasma cell myeloma and is an independent adverse prognostic variable, despite its relative frequence. (Blood 95: 0190-1907) 3. 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 Comment: An abnormal hybridization double fusion pattern (1R1G2F) was identified in a subset of cells, consistent with CCND1-IGH gene rearrangement. Translocation (11;14) is associated with cyclin D1 overexpression and is a favorable prognostic variable for newly diagnosed plasma cell myeloma patients treated with high-dose chemotherapy or autologous transplantation. 4. No evidence of p53 (17p13) deletion or amplification. 5. No evidence of FGFR3-IGH [translocation t(4;14)] gene rearrangement. 6. Negative for 1q21/CKS1B gain Please see complete report in e-chart or EMR CYTOGENETICS REPORT FROM [facility] INTERPRETATION: A normal male chromosome was observed in twenty metaphases analyzed. Karyotype: 46,XY[20] Please see complete report in e-chart or EMR for further details This addendum is added to incorporate an outside pathology consultation report. The case was examined at [facility] (#[id number]) and the following diagnosis was rendered. Bone marrow, biopsy, clot, aspirate and peripheral blood: Plasma cell myeloma in a hypercellular marrow (average 70-80%). Please see complete above mentioned consultation report in EMR
[2020-09-06 09:31] LABS: Bone Marrow Aspiraton SEE PATHOLOGY REPORT
== END ==
PROVIDERS: PCP Family Medicine; Referring Provider Internal Medicine Hematology & Oncology; Visit Provider Internal Medicine Hematology & Oncology
DX: D47.2 Monoclonal gammopathy (principal)
CPT/HCPCS: 20220; 36415; 77012; 80053; 85025; 85610; 85730; 88305; 88311; 88313; 88341; 88342; 99155; 99156; J7040; A4216

== ENCOUNTER 2020-09-07 09:26 | Emergency (ER) | payer MEDICARE, BC, SELFPAY ==
[2020-09-06 08:14] VITALS: BMI 19.6
[2020-09-07 09:29] VITALS: BP 159/78; PULSE 71; RESP 16; TEMP 36.2; O2SAT 100
--- NOTE | 2020-09-07 10:01 | ED.DCSUM_ITS ---
History of Present Illness Chief Complaint: Back Informant: Patient Narrative: 70-year-old male presenting with back pain. He states this is acute on chronic issue. Patient states he started to have back pain in the fall of last year and was initially treated with muscle relaxers. He states that these did not help him at all. Eventually his PCP Dr. Chiang did some lab work and had concern for metastatic disease. Patient was sent to both Dr. Bass and Dr. Tabor. Patient had an MRI previously which showed acute compression fracture of L1 on 08/23/2019. 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 Patient is also had a bone scan which shows a lesion in the femur on the left. Patient did have a bone marrow biopsy yesterday. He is awaiting results of this. He states that is awaiting the results to determine the next course of therapy. In the meantime the patient states that he was able to walk a couple of miles earlier in the week and now is having trouble ambulating a few feet secondary to pain. He is taking [place] at home with minimal relief. His primary care physician has called in oxycodone but he has not picked this up yet. He denies loss of bladder or bowel control. He denies urinary retention. - Past Medical History (1) Bone lesion Status: Chronic (2) MGUS (monoclonal gammopathy of unknown significance) Status: Chronic (3) Chronic renal failure Status: Chronic Past Medical History - Allergies and Home Meds Allergies/Adverse Reactions: Allergies No Known Allergies Allergy (Verified 09/06/20 08:10) Primary Care Physician: Bradley Chiang DO [Primary Care Provider] - Prior records reviewed: Yes Past Medical History: - - Reviewed in problem list Surgical History: noncontributory Lives: Spouse/ Significant Other Smoking Status: Never smoker Alcohol: None Drugs: None Review of Systems General: Denies: Chills, Fever, Sweats Eyes: Denies: Visual changes - bilaterally, Diplopia ENT: Denies: Rhinorrhea, Sore throat Cardiovascular: Denies: Chest pain, Palpitations Respiratory: Denies: Dyspnea, Cough, Dyspnea on exertion Gastrointestinal: Denies: Abdominal pain, Nausea, Vomiting, Diarrhea, Melena, Hematochezia Genitourinary: Reports: Dysuria Musculoskeletal: Reports: Back pain. Denies: Swelling, Extremity Pain Skin: Denies: Rash, Abscess Neurological: Denies: Headache, Weakness, Parasthesia, Numbness Psych: Denies: Depression, Anxiety Physical Exam Vital Signs/Narrative: Vital Signs Temp Pulse Resp BP Pulse Ox 09/07/20 09:29 97.2 F L 71 16 159/78 H 100 Inital Vital Signs reviewed: Yes General: Well nourished, No Acute Distress Head: Normocephalic, Atraumatic Eyes: Perrl, EOMI Cardiovascular: Regular rate, Regular rhythm Respiratory: No distress, CTA bilaterally Back: - - Diffuse tenderness of the lumbar spine bilaterally. There is no obvious deformity or step-off in the midline. Pain is elicited by rotational movement more than palpation.. Negative for: CVA tenderness Extremities: Nontender, No edema, - - 5/5 lower extremity strength. Sensation is intact bilaterally throughout. Skin: Normal color, No rash Neurological: Alert, Oriented x3 Psychological: Normal affect, Normal Mood Diagnostic/Tx/Re-eval - Medical Decision Making 10-year-old male presenting with worsening back pain. He does have what appears to be metastasis to his lumbar and thoracic spine. Patient has been seen by Dr. Bass however it appears by reading his notes he wants to see what therapy he gets for possible metastases. Patient is awaiting biopsy results. 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 Patient was given oxycodone and his pain improved. He was able to ambulate. He has a prescription for oxycodone at his pharmacy which he has not picked up. Given that he does not have any red flag signs or symptoms such as cauda equina syndrome or infectious etiology I feel he safe to be discharged home at this time. Impression: 1. Back pain with history of metastasis 2. History of L1 compression fracture ED Disposition - Plan for ED Patient: Instructions: ED Back Sprain/Strain Referrals: Bradley Chiang DO [Primary Care Provider] - Burak Bass DO [STAFF PHYSICIAN] -
[2020-09-07] MEDS: oxyCODONE 5 MG Tablet PO (10:11)
[2020-09-07 11:58] VITALS: BP 164/82; PULSE 65; RESP 16; O2SAT 100
== END 2020-09-07 11:59 | disposition home or self-care (01) ==
LOC: ED 10:11
PROVIDERS: Emergency Provider Student in an Organized Health Care Education/Training Program; PCP Family Medicine
DX: M54.9 Dorsalgia, unspecified (principal)
CPT/HCPCS: 99284

== ENCOUNTER 2020-09-10 10:00 | Outpatient (RCR) | payer MEDICARE, BC, SELFPAY ==
[2020-09-06 08:14] VITALS: BMI 19.6
--- NOTE | 2020-09-11 20:42 | PCM.NTREPORT ---
Nutrition Therapy Report - History Nutrition Services has been consulted to:: Conduct nutrition counseling Current diet / nutrition support order:: MST screen score of 5 on 08/31/20 d/t 14% unintended body weight loss from reported UBW of 170# with no decrease in appetite. - Anthropometric Measurements Height:: 6 ft Weight:: 65.68 kg Body Mass Index (BMI):: 19.6 - Assessment Food / Nutrition-Related History:: Emmett states at UBW of 170# in summer of 2018. Unintended weight loss from December 2018 to current August 2019 (9 months) with no loss in appetite. CKD Dx Mar 2020; states still learning what foods are kidney friendly/ meal planning. - Nutrition Diagnosis Problem / Etiology / Signs & Symptoms (PES):: NUTR Dx: Unintended weight loss R/T physiological causes increasing nutrient needs including bone lesions suspicious of metastatic CA and CKD AEB MST screen sore of 5 reported for 14% body weight loss from 170# UBW reported and losing weight without trying and no admission of decreased appetite. Evidence of Malnutrition Exists:: Yes Severe PCM:: Acute Illness - Nutrition Intervention Nutrition Prescription:: -Discussion on importance of nutriton in CA care, fortifying foods, food safety, use of supplemental nutrition drinks, Kidney friendly foods, balance of kidney friendly diet with needed weight gain for CA Dx and Tx. - Food / Nutrient Delivery Interventions Nutrition education provided?: Yes - MNT Monitoring Further MNT monitoring and evaluation required?: Yes - follow overall nutrition status and weight through ONC team collaboration
[2020-09-11 20:59] VITALS: BMI 19.6
== END 2020-09-19 23:59 ==
LOC: NS 10:00
PROVIDERS: PCP Family Medicine; Visit Provider Internal Medicine Hematology & Oncology
DX: N18.30 Chronic kidney disease, stage 3 unspecified (principal); R63.4 Abnormal weight loss; M89.9 Disorder of bone, unspecified
CPT/HCPCS: 97802

== ENCOUNTER → 2020-09-11 10:06 | Outpatient (CLI) | payer MEDICARE, BC, SELFPAY ==
[2020-09-11 12:15] LABS: Hematocrit 29.6 % (40-54); Hemoglobin 9.7 g/dL (13.0-16.5); Mean Corp Hgb Conc 32.8 g/dL (32-36); Mean Corpuscular Hgb 31.3 pg (27.0-32.0); Mean Corpuscular Volume 95.5 fL (80-94); Mean Platelet Vol. 9.1 fl (6.2-12.0); Platelet Count 235 K/mm3 (150-450); RBC Distribution Width CV 12.6 % (11.6-14.6); RBC Distribution Width SD 43.7 fl (35.1-43.9); White Blood Count 4.1 K/mm3 (4.4-11.0)
[2020-09-11 12:34] LABS: BUN 63 mg/dL (7-18); BUN/Creat Ratio 20.9 RATIO (10-20); Calcium,Total 9.6 mg/dL (8.5-10.1); Chloride 106 mmol/L (98-107); Creatinine, Serum 3.02 mg/dL (0.70-1.30); EST Glomerular Filtration Rate 22 mL/min (>60); Est Glom Filt Rate - Afr Amer 27 mL/min (>60); Glucose 74 mg/dL (74-106); Phosphorus 4.6 mg/dL (2.5-4.9); Potassium 5.5 mmol/L (3.5-5.1); Sodium Level 137 mmol/L (136-145)
[2020-09-11 12:49] LABS: Protein, Urine (Random) 46.1 mg/dL (<11.9); Protein:Creat Ratio 568 mg/g CRE (0-200)
== END ==
PROVIDERS: PCP Family Medicine; Visit Provider Internal Medicine Nephrology
DX: N18.32 Chronic kidney disease, stage 3b (principal)
CPT/HCPCS: 36415; 80069; 82570; 84156; 85027

== ENCOUNTER → 2020-09-18 10:28 | Outpatient (CLI) | payer MEDICARE, BC, SELFPAY ==
[2020-09-11 20:59] VITALS: BMI 19.6
[2020-09-18 10:57] LABS: BUN 72 mg/dL (7-18); BUN/Creat Ratio 23.2 RATIO (10-20); Chloride 104 mmol/L (98-107); Creatinine, Serum 3.11 mg/dL (0.70-1.30); EST Glomerular Filtration Rate 21 mL/min (>60); Est Glom Filt Rate - Afr Amer 26 mL/min (>60); Glucose 106 mg/dL (74-106); Phosphorus 4.4 mg/dL (2.5-4.9); Potassium 5.6 mmol/L (3.5-5.1); Sodium Level 135 mmol/L (136-145)
== END ==
PROVIDERS: PCP Family Medicine; Visit Provider Internal Medicine Nephrology
DX: E87.5 Hyperkalemia (principal)
CPT/HCPCS: 36415; 80069

== ENCOUNTER 2020-09-25 08:00 | Outpatient (RCR) | payer MEDICARE, BC, SELFPAY | END 2020-10-19 23:59 | LOC: NS 08:00 | PROVIDERS: PCP Family Medicine; Visit Provider Internal Medicine Hematology & Oncology | DX: N18.30 Chronic kidney disease, stage 3 unspecified (principal); R63.4 Abnormal weight loss; M89.9 Disorder of bone, unspecified | CPT/HCPCS: 97803 ==

== ENCOUNTER → 2020-12-25 08:29 | Outpatient (CLI) | payer MEDICARE, BC, SELFPAY ==
[2020-12-18 11:42] VITALS: BMI 19.6
[2020-12-25 13:08] LABS: Albumin, Serum 4.1 g/dL (3.2-5.0); BUN 58 mg/dL (7-18); BUN/Creat Ratio 15.7 RATIO (10-20); Calcium,Total 7.7 mg/dL (8.5-10.1); Chloride 109 mmol/L (98-107); Creatinine, Serum 3.69 mg/dL (0.70-1.30); EST Glomerular Filtration Rate 17 mL/min (>60); Est Glom Filt Rate - Afr Amer 21 mL/min (>60); Glucose 182 mg/dL (74-106); Phosphorus 2.6 mg/dL (2.5-4.9); Potassium 4.5 mmol/L (3.5-5.1); Sodium Level 138 mmol/L (136-145)
[2020-12-25 14:10] LABS: Creat.Clear Total Volume 2900 mL; Creatinine Clearance 22 ml/min (100-200); Creatinine Serum Creat 3.7 mg/dL (0.8-1.3); Creatinine Urine 39.8 mg/dL (NO RANGE EST.); EST Glomerular Filtration Rate 17 mL/min (>60); Est Glom Filt Rate - Afr Amer 21 mL/min (>60)
[2020-12-25 14:13] LABS: 24 Hour Urine Protein 539.4 mg/24HR (<150 MG/24HR); 24HR. UA Prot. Total Volume 2900 mL; Urine Protein (24 Hour) 18.6 mg/dL (<11.9)
== END ==
PROVIDERS: PCP Family Medicine; Referring Provider Internal Medicine Nephrology; Visit Provider Internal Medicine Nephrology
DX: N17.9 Acute kidney failure, unspecified (principal); D47.2 Monoclonal gammopathy; D64.9 Anemia, unspecified; N18.4 Chronic kidney disease, stage 4 (severe)
CPT/HCPCS: 36415; 80069; 81050; 82575; 82784; 83883; 84156; 84165; 85025; 86334; J9041

== ENCOUNTER → 2021-02-21 09:21 | Outpatient (CLI) | payer MEDICARE, BC, SELFPAY ==
[2020-12-25 13:11] VITALS: BMI 19.8
[2021-02-21 10:16] LABS: PTHIN 149.7 pg/mL (18.4-80.1)
[2021-02-21 10:34] LABS: BUN 54 mg/dL (7-18); BUN/Creat Ratio 15.9 RATIO (10-20); Calcium,Total 8.1 mg/dL (8.5-10.1); Chloride 111 mmol/L (98-107); Creatinine, Serum 3.39 mg/dL (0.70-1.30); EST Glomerular Filtration Rate 19 mL/min (>60); Est Glom Filt Rate - Afr Amer 23 mL/min (>60); Glucose 73 mg/dL (74-106); Phosphorus 3.8 mg/dL (2.5-4.9); Potassium 4.7 mmol/L (3.5-5.1); Sodium Level 140 mmol/L (136-145)
== END ==
PROVIDERS: PCP Family Medicine; Referring Provider Internal Medicine Nephrology; Visit Provider Internal Medicine Nephrology
DX: N18.4 Chronic kidney disease, stage 4 (severe) (principal); E87.5 Hyperkalemia
CPT/HCPCS: 36415; 80069; 83970

== ENCOUNTER → 2021-05-23 09:25 | Outpatient (CLI) | payer MEDICARE, BC, SELFPAY ==
[2021-05-23 12:49] LABS: Albumin, Serum 4.1 g/dL (3.2-5.0); BUN 57 mg/dL (7-18); BUN/Creat Ratio 18.5 RATIO (10-20); Calcium,Total 8.3 mg/dL (8.5-10.1); Chloride 108 mmol/L (98-107); Creatinine, Serum 3.08 mg/dL (0.70-1.30); EST Glomerular Filtration Rate 21 mL/min (>60); Est Glom Filt Rate - Afr Amer 26 mL/min (>60); Glucose 90 mg/dL (74-106); Phosphorus 2.8 mg/dL (2.5-4.9); Potassium 4.7 mmol/L (3.5-5.1); Sodium Level 139 mmol/L (136-145)
== END ==
PROVIDERS: PCP Family Medicine; Visit Provider Internal Medicine Nephrology
DX: N18.4 Chronic kidney disease, stage 4 (severe) (principal)
CPT/HCPCS: 36415; 80069

== ENCOUNTER → 2021-10-15 | Outpatient (CLI) | payer MEDICARE, BC, SELFPAY ==
[2021-10-15 11:51] LABS: PSA,Total- Diagnostic 1.89 ng/mL (0.0-4.0)
== END | disposition home or self-care (01) ==
LOC: LAB 10:25
PROVIDERS: PCP Family Medicine; Referring Provider Urology; Visit Provider Urology
DX: R97.20 Elevated prostate specific antigen [PSA] (principal)
CPT/HCPCS: 36415; 84153

== ENCOUNTER 2022-05-22 09:26 | Emergency (ER) | payer MEDICARE, BC, SELFPAY ==
[2022-05-22 09:27] VITALS: BP 113/64; BP 141/70; PULSE 54; PULSE 58; RESP 12; RESP 14; TEMP 36.6; TEMP 36.9; O2SAT 100; O2SAT 98; BMI 20.3
--- NOTE | 2022-05-22 09:47 | EDS_ITS ---
HPI History of Present Illness Chief Complaint: Hypertension Detail of Chief Complaint: Hypotension not hypertension Informant: patient and spouse/S.O. Onset/Context/Timing Onset: Hours Context: Sudden Onset Timing: Intermittent Quality: Became pale, sweaty and did not feel well, blood pressure was low Location: Pain management Current Severity: Gone Maximum Severity: Moderate Worsened by: Pain/injection Relieved by: Time Associated Symptoms Associated Symptoms: Nausea and diaphoresis with near syncope and hypotension Narrative Narrative: Patient is a 71-year-old male with history of hypertension, multiple Aloma who was at pain management. He developed pain and became sweaty pale and did not feel well. Blood pressure was assessed and he was hypotensive. He got better. He was injected and was observed. He had second episode. He denies fever, chills night sweats. Nu[place] headache, visual, ocular auditory symptoms. He denies respiratory symptoms. He denies black or maroon-colored stool. He denies leg pain, swelling discoloration. He denies shortness of breath or pleuritic chest pain. Prior similar symptoms: No Recent Illness/Hospitalization: Yes [facility] Medical History Acute hypokalemia Diarrhea due to drug Encounter for chemotherapy management Kidney disease Home Medications tamsulosin 0.4 mg capsule 0.4 mg PO DAILY 08/20/20 [History Last Taken Unknown] finasteride 5 mg tablet 5 mg PO DAILY 09/07/20 [History Last Taken Unknown] sodium zirconium cyclosilicate 10 gram oral powder packet (Lokelma) 10 g PO .QOD 07/22/21 [History Last Taken Unknown] dexamethasone 4 mg tablet 20 mg PO QWEEK 90 days #65 tabs 01/06/22 [Rx Last Taken Unknown] acyclovir 400 mg tablet 400 mg PO DAILY 05/22/22 [History Last Taken Unknown] calcium carbonate 600 mg calcium (1,500 mg) tablet (Calcium) 600 mg PO BID 05/22/22 [History Last Taken Unknown] Allergy/AdvReac Type Severity Reaction Status Date / Time No Known Allergies Allergy Verified 05/22/22 09:31 Family History Father Colon cancer Mother History of back problems Surgical History No history of previous surgery Social History household members: spouse housing: house current occupational status: retired Smoking Status: Never smoker alcohol intake: never what type of physical activity do you participate in: walking frequency: daily blake/buddhist: Spiritism seatbelt use: always do you feel safe at home: Yes ROS ROS ED Constitutional Constitutional ED: Denies chills, fever(s), subjective, sweats or weight loss Eyes Eyes: Denies blurry vision, change in vision or diplopia ENT ENT ED: Denies ear pain, rhinorrhea or sore throat Cardiovascular Cardiovascular: Denies chest pain, palpitations or racing heartbeat Respiratory/Chest Respiratory/Chest: Denies cough, dyspnea or dyspnea on exertion Gastrointestinal Gastrointestinal: Reports nausea; Denies abdominal pain or vomiting Genitourinary Genitourinary ED: Denies dysuria, hematuria or urinary frequency Musculoskeletal Musculoskeletal: Denies arthralgias, back pain, myalgias or neck pain Integumentary Reports other Details: Diaphoresis and pallor ; Denies Abrasions or rash Neurologic Neurologic: Denies headache(s) or paresthesias Hematologic/Lymphatic Hematologic/Lymphatic: Reports as per HPI EXAM Physical Exam Const Vital Signs: 05/22/22 09:27 05/22/22 09:27 05/22/22 09:56 Temperature 97.8 F 98.4 F Temperature Source Temporal Temporal Pulse Rate 54 L 58 L Respiratory Rate 14 12 Respiratory Effort Normal Non-Labored Respiratory Pattern Normal Blood Pressure 113/64 141/70 H Blood Pressure Mean 80 93 Pulse Ox 100 98 Oxygen Delivery Method Room Air Room Air Positive well nourished and well developed General Appearance ED: well developed and NAD; Negative for cyanotic, diaphoretic or pallor HEENT Reports moist mucous membranes HEENT Narrative: Head is atraumatic normocephalic. Ears normal. Nares patent. Mucosa moist. Eyes PERRL and EOMs intact bilaterally General Eye ED: Negative for pale conjunctiva or scleral icterus Neck no lymphadenopathy, supple and no JVD Resp normal respiratory effort and clear to auscultation bilaterally Cardio regular rate, regular rhythm, S1 normal heart sound, S2 normal heart sound and no murmurs GI normal to inspection, nondistended, normoactive bowel sounds, non-tender, non- distended and no masses Extremity normal to inspection Extremity Narrative: There is no asymmetry, swelling, discoloration, leg vein distention, palpable cords or tenderness along the distribution of the deep venous system. Neuro oriented x3 and CN's II-XII intact bilaterally Psych mental status grossly normal Skin no rashes or lesions noted, no wounds and skin turgor normal General Skin Exam: Negative for jaundice or pallor MDM MDM MDM Narrative Medical decision making narrative: Patient had a vasovagal response to pain and injection. Will observe. If he has no recurrence of his symptoms after observation will discharge to home with appropriate home-going instructions. Will place on the monitor to rule out dysrhythmia. Patient's history and physical consistent with vasovagal event. Will discharge home with appropriate home-going instructions. He was observed until 1135 Rhythm Strip Rhythm Strip: Sinus Rhythm Rate: 65 Ectopy: PAC(s) Discharge Plan Triage Chief Complaint: Hypertension ED Provider: Param oDwns Dx/Rx/DC Orders Clinical Impression: Vaso-vagal reaction, Chronic renal failure, Multiple myeloma, Acute hypotension Instructions: ED Near-Fainting- Vagal Reaction Prescriptions: No Action tamsulosin 0.4 mg capsule 0.4 mg PO DAILY Lokelma 10 gram powder in packet 10 g PO .QOD Rx Instructions: dexamethasone 4 mg tablet 20 mg PO QWEEK 90 Days Qty: 65 4RF Rx Instructions: On weeks of chemotherapy finasteride 5 MG tablet 5 mg PO DAILY acyclovir 400 mg tablet 400 mg PO DAILY calcium carbonate [Calcium 600] 600 mg calcium (1,500 mg) Tablet 600 mg PO BID Primary Care Provider: Bradley Chiang Referrals: Bradley Chiang DO [Primary Care Provider] - As Needed Disposition Disposition: Home, Self Care
[2022-05-22 11:27] VITALS: BP 134/76; PULSE 57; RESP 14; TEMP 36.8; O2SAT 97
[2022-05-22 11:40] VITALS: BP 139/75; PULSE 58; RESP 16; TEMP 36.7; O2SAT 97
--- NOTE | 2022-05-22 14:06 | EDS_ITS ---
HPI History of Present Illness Chief Complaint: Hypertension Detail of Chief Complaint: Hypotension not hypertension Informant: patient Onset/Context/Timing Onset: Weeks Context: Sudden Onset Timing: Intermittent Quality: Lightheadedness, drop in blood pressure, pallor and diaphoresis Location: Pain management Current Severity: Gone Maximum Severity: Severe Worsened by: Pain and epidural injection Relieved by: Nothing Associated Symptoms Associated Symptoms: Previously documented Narrative Narrative: Is a 71-year-old male with history of Muss myeloma who presents from pain management because of hypotension. He experienced pain prior to hypotension. He did receive his injection. He was observed. He had another episode where he felt lightheaded. His blood pressure was low. He felt nauseous. With the other episode he was pale and diaphoretic. Both episodes were short-lived. He denies black or maroon-colored stool. No shortness of breath, difficulty breathing or chest discomfort. He denies headache, visual, ocular auditory symptoms. Recent Illness/Hospitalization: No [facility] Medical History Acute hypokalemia Diarrhea due to drug Encounter for chemotherapy management Kidney disease Home Medications tamsulosin 0.4 mg capsule 0.4 mg PO DAILY 08/20/20 [History Last Taken Unknown] finasteride 5 mg tablet 5 mg PO DAILY 09/07/20 [History Last Taken Unknown] sodium zirconium cyclosilicate 10 gram oral powder packet (Lokelma) 10 g PO .QOD 07/22/21 [History Last Taken Unknown] dexamethasone 4 mg tablet 20 mg PO QWEEK 90 days #65 tabs 01/06/22 [Rx Last Taken Unknown] acyclovir 400 mg tablet 400 mg PO DAILY 05/22/22 [History Last Taken Unknown] calcium carbonate 600 mg calcium (1,500 mg) tablet (Calcium) 600 mg PO BID 1 07/23/21 [History Last Taken Unknown] Allergy/AdvReac Type Severity Reaction Status Date / Time No Known Allergies Allergy Verified 05/22/22 09:31 Family History Father Colon cancer Mother History of back problems Surgical History No history of previous surgery Social History household members: spouse housing: house current occupational status: retired Smoking Status: Never smoker alcohol intake: never what type of physical activity do you participate in: walking frequency: daily blake/yazdanism: Orthodoxy seatbelt use: always do you feel safe at home: Yes ROS ROS ED Constitutional Constitutional ED: Denies chills, fever(s), subjective, sweats or weight loss Eyes Eyes: Reports change in vision bilateral; Denies blurry vision or diplopia ENT ENT ED: Denies ear pain, rhinorrhea or sore throat Cardiovascular Cardiovascular: Denies chest pain, palpitations or racing heartbeat Respiratory/Chest Respiratory/Chest: Denies cough, dyspnea or dyspnea on exertion Gastrointestinal Gastrointestinal: Reports nausea; Denies abdominal pain or vomiting Genitourinary Genitourinary ED: Denies dysuria, hematuria or urinary frequency Musculoskeletal Musculoskeletal: Denies arthralgias, back pain or neck pain Integumentary Denies Abrasions or rash Neurologic Neurologic: Reports weakness and other; Denies headache(s) or paresthesias Endocrine Endocrinology: Reports cold intolerance and heat intolerance Hematologic/Lymphatic Hematologic/Lymphatic: Reports systems reviewed and no addt'l complaints, except as documented EXAM Physical Exam Const Vital Signs: 05/22/22 09:27 05/22/22 09:27 05/22/22 09:56 Temperature 97.8 F 98.4 F Temperature Source Temporal Temporal Pulse Rate 54 L 58 L Respiratory Rate 14 12 Respiratory Effort Normal Non-Labored Respiratory Pattern Normal Blood Pressure 113/64 141/70 H Blood Pressure Mean 80 93 Pulse Ox 100 98 Oxygen Delivery Method Room Air Room Air 05/22/22 11:27 05/22/22 11:40 Temperature 98.2 F 98.0 F Temperature Source Temporal Pulse Rate 57 L 58 L Respiratory Rate 14 16 Respiratory Effort Respiratory Pattern Blood Pressure 134/76 H 139/75 H Blood Pressure Mean 95 Pulse Ox 97 97 Oxygen Delivery Method Room Air Positive well nourished and well developed General Appearance ED: well developed and NAD; Negative for cyanotic or diaphoretic HEENT Reports moist mucous membranes trauma; Negative for tenderness Eyes PERRL and EOMs intact bilaterally General Eye ED: Negative for pale conjunctiva or scleral icterus Neck no lymphadenopathy, supple and no JVD Chest Wall inspection of chest normal and palpation of chest normal Resp normal respiratory effort and clear to auscultation bilaterally Cardio regular rate, regular rhythm, S1 normal heart sound, S2 normal heart sound and no murmurs GI normal to inspection, nondistended, normoactive bowel sounds, non-tender, non- distended and no masses; Negative for hepatosplenomegaly Extremity normal to inspection General Extremety ED: Negative for edema or tenderness General Extremity: Negative for edema Neuro oriented x3, CN's II-XII intact bilaterally and no sensory deficits noted Sensorium / Orientation: alert Psych mental status grossly normal Skin no rashes or lesions noted, no wounds and skin turgor normal MDM MDM MDM Narrative Medical decision making narrative: Patient's history and physical exam is consistent with vasovagal near syncopal episode. He was placed on monitor and observ. He had no ventricular ectopy. He did have a premature atrial contractions noted. He was observed for some time. He was discharged to home with appropriate home actions. Rhythm Strip Rhythm Strip: Sinus Rhythm Rate: 65 Ectopy: PAC(s) EKG Initial EKG: Attestation: I personally reviewed and interpreted this EKG as follows: Interpretation: Sinus Rhythm (Ventricular rate is 60. Parables 148 ms per cures duration under 6 ms for QT duration 4 to 26 ms. Ridott to left.) Discharge Plan Triage Chief Complaint: Hypertension ED Provider: Param Downs Dx/Rx/DC Orders Clinical Impression: Vaso-vagal reaction, Chronic renal failure, Multiple myeloma, Acute hypotension Instructions: ED Near-Fainting- Vagal Reaction Prescriptions: No Action tamsulosin 0.4 mg capsule 0.4 mg PO DAILY Lokelma 10 gram powder in packet 10 g PO .QOD Rx Instructions: dexamethasone 4 mg tablet 20 mg PO QWEEK 90 Days Qty: 65 4RF Rx Instructions: On weeks of chemotherapy finasteride 5 MG tablet 5 mg PO DAILY acyclovir 400 mg tablet 400 mg PO DAILY calcium carbonate [Calcium 600] 600 mg calcium (1,500 mg) Tablet 600 mg PO BID Primary Care Provider: Bradley Chiang Referrals: Bradley Chiang DO [Primary Care Provider] - As Needed Disposition Disposition: Home, Self Care
== END 2022-05-22 11:53 | disposition home or self-care (01) ==
PROVIDERS: Emergency Provider Emergency Medicine; PCP Family Medicine; Visit Provider Emergency Medicine
DX: R55 Syncope and collapse (principal); C90.00 Multiple myeloma not having achieved remission; I12.9 Hypertensive chronic kidney disease with stage 1 through stage 4 chronic kidney disease, or unspecified chronic kidney disease; N18.9 Chronic kidney disease, unspecified; Z79.899 Other long term (current) drug therapy
CPT/HCPCS: 93005; 99283

== ENCOUNTER → 2022-09-24 | Outpatient (CLI) | payer MEDICARE, BC, SELFPAY ==
--- NOTE | 2022-09-24 08:25 | RAD_ITS ---
INDICATION: L JAW PAIN EXAMINATION/TECHNIQUE: X-RAY - XR Mandible Complete Min 4 Views COMPARISON: Skull series 08/20/2020 FINDINGS: SOFT TISSUES: No soft tissue swelling or gas. No radiopaque foreign body. BONES/TMJs: No fracture or subluxation. No sclerotic or destructive changes observed. DENTITION: No acute abnormality. RAD/Mandible Min 4 Views IMPRESSION: No acute bony abnormality. Electronically Signed: Joon Mcdonough MD at 0:11 EDT ,
== END | disposition home or self-care (01) ==
PROVIDERS: PCP Family Medicine; Referring Provider Family Medicine; Visit Provider Family Medicine
DX: R68.84 Jaw pain (principal); Z79.811 Long term (current) use of aromatase inhibitors
CPT/HCPCS: 70110

== ENCOUNTER → 2024-03-21 | Outpatient (CLI) | payer MEDICARE, BC, SELFPAY ==
--- NOTE | 2024-03-21 12:05 | RAD_ITS ---
STUDY: X-RAY - RIGHT KNEE REASON FOR EXAM: Male, 73 years old. Right knee pain; multiple myeloma TECHNIQUE: 2 view(s) of the knee. COMPARISON: None. FINDINGS: Normal visualized distal femur. Normal visualized proximal tibia and fibula. Normal proximal tibiofibular articulation. Normal medial femorotibial compartment. Normal lateral femorotibial compartment. Normal patellofemoral articulation. Calcification of the medial and lateral menisci suggestive of chondrocalcinosis. Vascular calcification. RAD/Knee 1 or 2 Views IMPRESSION: Findings suggestive of chondrocalcinosis. Electronically Signed: Damion Rushing MD at 12:17 EDT ,
== END | disposition home or self-care (01) ==
LOC: RAD 11:58
PROVIDERS: PCP Family Medicine; Referring Provider Nurse Practitioner Family; Visit Provider Nurse Practitioner Family
DX: M25.561 Pain in right knee (principal)
CPT/HCPCS: 73560